=== PATIENT | male | born 1945 | race Caucasian/White ===

== ENCOUNTER 2022-02-15 04:27 | Inpatient (IN) | payer BC, MEDICARE ==
[2022-02-15] MEDS ORDERED: Ondansetron PF 4 MG/2 ML Vial ONE (04:56)
[2022-02-15 04:57] LABS: Actual Bicarbonate (HCO3a) 18.4 mEq/L (22-28); Analyzer IN Cardio ER; Base Excess (BEa) -5.9 mEq/L (-2.0 to +3.0); CO2 Tension 33.6 mmHg (35.0-45.0); Calcium, Ionized (arterial) 1.07 mmol/L (1.12-1.30); Carboxyhemoglobin (COHb) 0.5 gm% (0.0-3.0); Hemoglobin (Hb) 16.3 g/dL (14.0-18.0); O2 Tension (PaO2), arterial 100.5 mmHg (> 70.0); Potassium - ABG Lab 4.19 mmol/L (3.70-5.30); pH, Arterial 7.36 (7.35-7.45)
[2022-02-15 05:04] LABS: Hemoglobin 17.7 g/dL (14.0-18.0); Mean Corpuscular HGB CONC 32.1 g/dL (32.0-36.0); Mean Corpuscular Hemoglobin 29.4 pg (27.0-31.0); Mean Corpuscular Volume 91.3 fL (78.0-98.0); Platelet Count 169 thou/uL (130-400); RBC Distribution Width 14.1 % (11.5-14.5); Red Blood Cell (RBC) Count 6.04 mill/uL (4.70-6.10)
[2022-02-15 05:13] LABS: ALT (SGPT) 24 U/L (8-55); AST (SGOT) 8 U/L (5-34); Albumin 3.9 g/dL (3.4-4.8); Alkaline Phosphatase 69 U/L (40-110); Anion Gap 17 mmol/L (10-20); BUN (Urea Nitrogen) 21 mg/dL (8.4-25.7); Bilirubin, Total 1.1 mg/dL (0.2-1.2); Calc. Creatinine Clearance 0 mL/min (70-130); Calcium 8.4 mg/dL (7.8-10.44); Carbon Dioxide 23 mmol/L (23-31); Chloride 103 mmol/L (98-107); Globulin 3.4 g/dL (2.4-3.5); Glucose 193 mg/dL (83-110); Lipase 12 U/L (8-78); Potassium 4.6 mmol/L (3.5-5.1); Protein, Total 7.3 g/dL (5.8-8.1); Sodium 138 mmol/L (136-145)
[2022-02-15 05:16] LABS: Puncture Site LRA
[2022-02-15 05:18] LABS: PTT 25.6 sec (22.9-36.1); Prothrombin Time 13.3 sec (12.0-14.7)
[2022-02-15 05:19] LABS: D-Dimer Test 1.11 *mcg/mL (0.27-0.43)
[2022-02-15 05:29] LABS: Band 6 % (5-11); Eosinophils 2 % (0-10); Lymphocytes 10 % (21-51); MDiff Complete? YES; Monocytes 28 % (0-10); Neutrophil 54 % (42-75); Platelet Morphology Comment Appears Adequate; RBC Morphology Normal; Reflex for Review?? YES; White Blood Cell (WBC) Count 1.8 thou/uL (4.8-10.8)
[2022-02-15] MEDS ORDERED: Vancomycin 1 GM/200 ML BAG ONE (05:35)
[2022-02-15] MEDS ORDERED: Cefepime 2 GM VIAL ONE (05:35)
[2022-02-15] MEDS ORDERED: Norepinephrine 8 MG/0.9% NS 250 ML ONE (06:03)
[2022-02-15] MEDS ORDERED: Ondansetron ODT 4 MG TAB SL PRN (06:15)
[2022-02-15] MEDS ORDERED: Ondansetron PF 4 MG/2 ML Vial IVP PRN (06:15)
[2022-02-15] MEDS ORDERED: Sodium Chloride 0.9% 1,000 ML IV SCH (06:15)
[2022-02-15] MEDS ORDERED: Acetaminophen 325 MG TAB PO PRN (06:41)
[2022-02-15 07:59] LABS: Lactic Acid 1.8 mmol/L (0.5-2.2)
[2022-02-15 09:26] VITALS: BMI 44.9
[2022-02-15] MEDS ORDERED: Piperacillin/Tazobactam 3.375 GM in Sodium Chloride 0.9% 100 ML IVPB SCH (10:00)
[2022-02-15] MEDS: Famotidine 20 MG TAB PO SCH ×2 (10:24→21:29)
[2022-02-15] MEDS: Apixaban 5 MG TAB PO SCH ×2 (10:24→21:29)
[2022-02-15] MEDS: Vancomycin 1 GM in Premix Bag 1 BAG IVPB SCH ×2 (10:50→11:07)
[2022-02-15 10:56] LABS: SARS-CoV-2 NAA Rapid Test Not Detected (NotDetected)
[2022-02-15] MEDS ORDERED: Lactated Ringer's 1,000 ML IV SCH (11:00)
[2022-02-15] MEDS: Lactated Ringer's 1,000 ML IV SCH (11:09)
[2022-02-15] MEDS ORDERED: Cefepime 2 GM in Sodium Chloride 0.9% 100 ML IVPB SCH (14:00)
[2022-02-15] MEDS: Piperacillin/Tazobactam 3.375 GM in Sodium Chloride 0.9% 100 ML IVPB SCH ×2 (14:21→21:30)
[2022-02-15] MEDS ORDERED: Norepinephrine 8 MG/0.9% NS 250 ML IVPB SCH (15:30)
[2022-02-15] MEDS: ALPRAZolam 1 MG TAB PO SCH (21:29)
[2022-02-16 04:51] LABS: Band 34 % (5-11); Eosinophils 5 % (0-10); Lymphocytes 16 % (21-51); MDiff Complete? YES; Mean Corpuscular HGB CONC 31.6 g/dL (32.0-36.0); Mean Corpuscular Hemoglobin 29.3 pg (27.0-31.0); Mean Corpuscular Volume 92.5 fL (78.0-98.0); Mean Platelet Volume 7.9 fL (7.4-10.4); Metamyelocyte 1 % (0-0); Monocytes 15 % (0-10); Neutrophil 20 % (42-75); Platelet Count 129 thou/uL (130-400); Platelet Morphology Comment Appears Decreased; RBC Distribution Width 14.1 % (11.5-14.5); RBC Morphology Normal; Reactive Lymphocytes 8 % (0-10); Red Blood Cell (RBC) Count 4.77 mill/uL (4.70-6.10); White Blood Cell (WBC) Count 2.1 thou/uL (4.8-10.8)
[2022-02-16 04:53] LABS: Anion Gap 9 mmol/L (10-20); BUN (Urea Nitrogen) 18 mg/dL (8.4-25.7); Calc. Creatinine Clearance 130 mL/min (70-130); Calcium 7.2 mg/dL (7.8-10.44); Carbon Dioxide 24 mmol/L (23-31); Chloride 110 mmol/L (98-107); Glucose 97 mg/dL (83-110); Sodium 139 mmol/L (136-145)
[2022-02-16] MEDS: Piperacillin/Tazobactam 3.375 GM in Sodium Chloride 0.9% 100 ML IVPB SCH ×3 (05:06→21:15)
[2022-02-16] MEDS: Lactated Ringer's 1,000 ML IV SCH (05:06)
[2022-02-16 07:49] LABS: Bacteria/HPF None Seen HPF (None Seen); Bilirubin Negative (Negative); Blood, Urine 3+ (Negative); Clarity Clear (Clear); Glucose, Urine (Dipstick) Normal (Negative); Ketone, Urine Negative (Negative); Leukocyte Negative Leu/uL (Negative); Nitrite Negative (Negative); Protein, Urine (Dipstick) 10 mg/dL (Neg-Trace); RBC/HPF Greater than 50 HPF (0-3); Specific Gravity, Urine 1.021 (1.002-1.036); Squamous Epithelial None Seen HPF (0-3); WBC/HPF 0-3 HPF (0-3)
[2022-02-16 07:51] LABS: Urine Culture Reflex No No
[2022-02-16] MEDS: Famotidine 20 MG TAB PO SCH ×2 (08:10→21:12)
[2022-02-16] MEDS: Apixaban 5 MG TAB PO SCH ×2 (08:10→21:12)
[2022-02-16] MEDS ORDERED: Vancomycin 1.5 GRAM/300 ML BAG 1.5 GM in Premix Bag 1 BAG IVPB SCH (10:00)
[2022-02-16] MEDS ORDERED: Albuterol Sulfate 1.25 MG/3 ML NEB NEB PRN (11:27)
[2022-02-16] MEDS ORDERED: Artificial Tear Sol 15 ML BOT EA EYE PRN (11:28)
[2022-02-16] MEDS: Vancomycin 1 GM in Premix Bag 1 BAG IVPB SCH ×2 (11:59→23:59)
[2022-02-16] MEDS: metroNIDAZOLE 500 MG TAB PO SCH ×2 (14:26→21:15)
[2022-02-16] MEDS: Mometasone 100 MCG/Formoterol 5 MCG 120 PUFF INHALER INH SCH (19:09)
[2022-02-16] MEDS ORDERED: THALIDOMIDE PO SCH (21:00)
[2022-02-16] MEDS: ALPRAZolam 1 MG TAB PO SCH (21:12)
[2022-02-17] MEDS: Piperacillin/Tazobactam 3.375 GM in Sodium Chloride 0.9% 100 ML IVPB SCH ×3 (05:11→21:30)
[2022-02-17] MEDS: metroNIDAZOLE 500 MG TAB PO SCH ×3 (05:11→21:30)
[2022-02-17 06:22] LABS: Anion Gap 11 mmol/L (10-20); BUN (Urea Nitrogen) 10 mg/dL (8.4-25.7); Calc. Creatinine Clearance 142 mL/min (70-130); Calcium 7.5 mg/dL (7.8-10.44); Carbon Dioxide 22 mmol/L (23-31); Chloride 109 mmol/L (98-107); Glucose 96 mg/dL (83-110); Potassium 3.9 mmol/L (3.5-5.1); Sodium 138 mmol/L (136-145)
[2022-02-17 06:34] LABS: Band 8 % (5-11); Eosinophils 2 % (0-10); Hemoglobin 14.5 g/dL (14.0-18.0); Lymphocytes 16 % (21-51); MDiff Complete? YES; Mean Corpuscular HGB CONC 31.7 g/dL (32.0-36.0); Mean Corpuscular Hemoglobin 29.3 pg (27.0-31.0); Mean Corpuscular Volume 92.6 fL (78.0-98.0); Mean Platelet Volume 7.8 fL (7.4-10.4); Monocytes 14 % (0-10); Neutrophil 60 % (42-75); Platelet Count 136 thou/uL (130-400); Platelet Morphology Comment Appears Adequate; RBC Distribution Width 14.1 % (11.5-14.5); RBC Morphology Normal; Red Blood Cell (RBC) Count 4.95 mill/uL (4.70-6.10); White Blood Cell (WBC) Count 2.9 thou/uL (4.8-10.8)
[2022-02-17] MEDS: Mometasone 100 MCG/Formoterol 5 MCG 120 PUFF INHALER INH SCH ×2 (07:05→21:32)
[2022-02-17] MEDS: Famotidine 20 MG TAB PO SCH ×2 (07:45→19:38)
[2022-02-17] MEDS: Flecainide 50 MG TAB PO SCH (07:46)
[2022-02-17] MEDS: Apixaban 5 MG TAB PO SCH ×2 (07:46→19:38)
[2022-02-17] MEDS: Floranex 1 GM Packet PO SCH (07:46)
[2022-02-17 07:58] LABS: Reactive Lymphocytes 2 % (0-10)
[2022-02-17] MEDS ORDERED: Saccharomyces boulardii 250 MG CAP PO SCH (09:00)
[2022-02-17 13:29] LABS: Vancomycin, Trough 7.9 ug/mL
[2022-02-17] MEDS: Vancomycin 1 GM in Premix Bag 1 BAG IVPB SCH (14:15)
[2022-02-17] MEDS: Vancomycin 1.5 GRAM/300 ML BAG 1.5 GM in Premix Bag 1 BAG IVPB SCH (14:20)
[2022-02-17] MEDS: ALPRAZolam 1 MG TAB PO SCH (19:38)
[2022-02-18] MEDS: Vancomycin 1.5 GRAM/300 ML BAG 1.5 GM in Premix Bag 1 BAG IVPB SCH (03:03)
[2022-02-18] MEDS: Piperacillin/Tazobactam 3.375 GM in Sodium Chloride 0.9% 100 ML IVPB SCH (05:11)
[2022-02-18] MEDS: metroNIDAZOLE 500 MG TAB PO SCH (05:11)
[2022-02-18 06:37] LABS: #Eosinphils 0.1 thou/uL (0.0-0.7); #Lymphocytes 0.7 thou/uL (1.20-3.40); #Monocytes 0.4 thou/uL (0.11-0.59); #Neutrophils 1.6 thou/uL (1.40-6.50); %Eosinophils 3.5 % (0.0-10.0); %Lymphocytes 23.8 % (21.0-51.0); %Monocytes 13.4 % (0.0-10.0); %Neutrophils 59.2 % (42.0-75.0); Hemoglobin 14.9 g/dL (14.0-18.0); Mean Corpuscular HGB CONC 32.4 g/dL (32.0-36.0); Mean Corpuscular Hemoglobin 29.3 pg (27.0-31.0); Mean Corpuscular Volume 90.5 fL (78.0-98.0); Mean Platelet Volume 7.7 fL (7.4-10.4); Platelet Count 143 thou/uL (130-400); RBC Distribution Width 13.9 % (11.5-14.5); Red Blood Cell (RBC) Count 5.07 mill/uL (4.70-6.10); White Blood Cell (WBC) Count 2.8 thou/uL (4.8-10.8)
[2022-02-18 06:43] LABS: Anion Gap 11 mmol/L (10-20); BUN (Urea Nitrogen) 10 mg/dL (8.4-25.7); Calc. Creatinine Clearance 156 mL/min (70-130); Calcium 8.1 mg/dL (7.8-10.44); Carbon Dioxide 24 mmol/L (23-31); Chloride 107 mmol/L (98-107); Glucose 95 mg/dL (83-110); Potassium 3.5 mmol/L (3.5-5.1); Sodium 138 mmol/L (136-145)
[2022-02-18] MEDS: Mometasone 100 MCG/Formoterol 5 MCG 120 PUFF INHALER INH SCH (06:50)
[2022-02-18 08:40] VITALS: BP 135/77; TEMP 98.4
[2022-02-18] MEDS: Apixaban 5 MG TAB PO SCH (08:44)
[2022-02-18] MEDS: Famotidine 20 MG TAB PO SCH (08:45)
[2022-02-18] MEDS: Flecainide 50 MG TAB PO SCH (08:45)
[2022-02-18] MEDS: Floranex 1 GM Packet PO SCH (08:45)
== END 2022-02-18 12:05 | disposition home or self-care (01) | DRG 871 ==
LOC: ERS 04:27 → CCU 06:09 → T4-B 02-16 10:46
PROVIDERS: ADMIT Internal Medicine; ATTEND Family Medicine
PROC: 06HY33Z Insertion of Infusion Device into Lower Vein, Percutaneous Approach (ICD-10-PCS; principal; 2022-02-15)
PROC: 3E033XZ Introduction of Vasopressor into Peripheral Vein, Percutaneous Approach (ICD-10-PCS; 2022-02-15)
PROC: 3E03329 Introduction of Other Anti-infective into Peripheral Vein, Percutaneous Approach (ICD-10-PCS; 2022-02-15)
DX: A41.2 Sepsis due to unspecified staphylococcus (principal); J96.01 Acute respiratory failure with hypoxia; R65.21 Severe sepsis with septic shock; R57.1 Hypovolemic shock; C90.00 Multiple myeloma not having achieved remission; E87.2 Acidosis; N17.9 Acute kidney failure, unspecified; I48.20 Chronic atrial fibrillation, unspecified; Z68.42 Body mass index [BMI] 45.0-49.9, adult; J44.9 Chronic obstructive pulmonary disease, unspecified; I48.91 Unspecified atrial fibrillation; Z96.649 Presence of unspecified artificial hip joint; E78.5 Hyperlipidemia, unspecified; Z96.659 Presence of unspecified artificial knee joint; I10 Essential (primary) hypertension; G47.33 Obstructive sleep apnea (adult) (pediatric); Z96.643 Presence of artificial hip joint, bilateral; K52.9 Noninfective gastroenteritis and colitis, unspecified; E66.01 Morbid (severe) obesity due to excess calories; Z20.822 Contact with and (suspected) exposure to COVID-19; Z79.899 Other long term (current) drug therapy; Z79.51 Long term (current) use of inhaled steroids; Z79.82 Long term (current) use of aspirin; Z90.49 Acquired absence of other specified parts of digestive tract; Z98.890 Other specified postprocedural states; Z79.01 Long term (current) use of anticoagulants; Z87.891 Personal history of nicotine dependence
CPT/HCPCS: 36415; 36600; 71045; 80048; 80053; 80202; 81001; 82805; 83605; 83690; 83880; 84484; 85025; 85060; 85379; 85610; 85730; 87040; 87077; 87149; 93005; 94660; J0692; J2405; J2543; J3370; J3490; J7050; J7120

== ENCOUNTER 2022-08-01 08:52 | Outpatient (CLI) | payer BC, MEDICARE | END 2022-08-01 08:53 | disposition home or self-care (01) | LOC: RAD 08:52 | PROVIDERS: ATTEND Internal Medicine Critical Care Medicine | DX: R06.00 Dyspnea, unspecified (principal) | CPT/HCPCS: 71046 ==

== ENCOUNTER 2023-02-02 12:51 | Outpatient (CLI) | payer MEDICARE ==
[2023-02-02 14:10] LABS: Bilirubin Neg (Negative); Blood, Urine Negative (Negative); Clarity Clear (Clear); Glucose, Urine (Dipstick) Normal (Negative); Ketone, Urine Negative (Negative); Leukocyte Negative (Negative); Nitrite Negative (Negative); Protein, Urine (Dipstick) Negative (Neg-Trace); Specific Gravity, Urine 1.015 (1.005-1.030); Urobilinogen Normal mg/dL (Less than 2)
[2023-02-02 14:15] LABS: Hemoglobin 14.8 g/dL (13.5-17.5); Mean Corpuscular Hemoglobin 28.3 pg (27.0-33.0); Mean Corpuscular Volume 88.5 fl (81.2-95.1); Mean Platelet Volume 10.5 fl (7.4-10.4); Platelet Count 214 10x3/uL (150-450); RBC Distribution Width 15.1 % (11.5-14.5); Red Blood Cell (RBC) Count 5.23 10x6/uL (4.32-5.72)
[2023-02-02 14:20] LABS: Bacteria/HPF 3+ HPF (None Seen); Mucous/LPF 1+ LPF (<2+); RBC/HPF 0-3 HPF (0-3); Squamous Epithelial 0-3 HPF (0-3); WBC/HPF 0-3 HPF (0-3)
[2023-02-02 14:34] LABS: PTT 28.4 sec (22.0-33.0); Prothrombin Time 10.9 sec (9.5-12.1)
[2023-02-02 15:16] LABS: Anion Gap 16 mmol/L (10-20); BUN (Urea Nitrogen) 18 mg/dL (8.4-25.7); Calc. Creatinine Clearance 0 mL/min (70-130); Calcium 8.4 mg/dL (7.8-10.44); Carbon Dioxide 23 mmol/L (23-31); Chloride 107 mmol/L (98-107); Estimated GFR 92; Glucose 94 mg/dL (83-110); Potassium 4.1 mmol/L (3.5-5.1); Sodium 142 mmol/L (136-145)
== END 2023-02-02 12:52 | disposition home or self-care (01) ==
LOC: LABBT 12:51
PROVIDERS: ATTEND Urology
DX: Z01.818 Encounter for other preprocedural examination (principal); Z12.5 Encounter for screening for malignant neoplasm of prostate; C90.00 Multiple myeloma not having achieved remission; N40.1 Benign prostatic hyperplasia with lower urinary tract symptoms; J44.9 Chronic obstructive pulmonary disease, unspecified; M96.1 Postlaminectomy syndrome, not elsewhere classified; M47.812 Spondylosis without myelopathy or radiculopathy, cervical region; I10 Essential (primary) hypertension; I48.91 Unspecified atrial fibrillation; R35.0 Frequency of micturition; N48.83 Acquired buried penis; Z79.01 Long term (current) use of anticoagulants; Z90.79 Acquired absence of other genital organ(s)
CPT/HCPCS: 80048; 81001; 85027; 85610; 85730; 87086; 93005; 93010

== ENCOUNTER 2023-02-13 08:18 | Outpatient (CLI) | payer BC, MEDICARE | END 2023-02-13 08:19 | disposition home or self-care (01) | LOC: RAD 08:18 | PROVIDERS: ATTEND Internal Medicine Critical Care Medicine | DX: R06.00 Dyspnea, unspecified (principal); J98.4 Other disorders of lung | CPT/HCPCS: 71046 ==

== ENCOUNTER 2023-02-15 09:06 | Day surgery (SDC) | payer BC, MEDICARE ==
[2023-02-02 13:37] VITALS: BMI 42.5
[2023-02-15] MEDS ORDERED: Levofloxacin 500 mg/D5W 100 ml Premix Bag ONE (09:15)
[2023-02-15] MEDS ORDERED: fentaNYL 50 mcg/mL 1 mL Vial ONE (09:28)
[2023-02-15] MEDS ORDERED: Famotidine/PF 20 mg/2ml Vial ONE (09:29)
[2023-02-15] MEDS ORDERED: Propofol 500 MG/50 ML VIAL ONE (09:29)
[2023-02-15] MEDS ORDERED: PROPOFOL 200 MG/20 ML VIAL ONE (09:48)
[2023-02-15] MEDS ORDERED: Ondansetron PF 4 MG/2 ML Vial ONE (09:48)
[2023-02-15] MEDS ORDERED: Lidocaine 1% PF 5 ML VIAL ONE (09:48)
[2023-02-15] MEDS ORDERED: Succinylcholine Chloride 100 MG/5 ML SYRINGE FS ONE (09:48)
[2023-02-15] MEDS ORDERED: Phenazopyridine HCl 100 MG TAB ONE (11:20)
[2023-02-15] MEDS ORDERED: Oxybutynin 5 MG TAB ONE (11:21)
== END 2023-02-15 13:18 | disposition home or self-care (01) ==
LOC: SDC 09:06
PROVIDERS: ATTEND Urology
PROC: 0T7D8DZ Dilation of Urethra with Intraluminal Device, Via Natural or Artificial Opening Endoscopic (ICD-10-PCS; principal; 2023-02-15)
DX: N40.1 Benign prostatic hyperplasia with lower urinary tract symptoms (principal); N13.8 Other obstructive and reflux uropathy; N35.912 Unspecified bulbous urethral stricture, male; J44.9 Chronic obstructive pulmonary disease, unspecified; I10 Essential (primary) hypertension; I48.91 Unspecified atrial fibrillation; M19.90 Unspecified osteoarthritis, unspecified site; I25.10 Atherosclerotic heart disease of native coronary artery without angina pectoris; G47.33 Obstructive sleep apnea (adult) (pediatric); E66.01 Morbid (severe) obesity due to excess calories; Z68.41 Body mass index [BMI] 40.0-44.9, adult; Z85.79 Personal history of other malignant neoplasms of lymphoid, hematopoietic and related tissues; Z87.891 Personal history of nicotine dependence; Z79.01 Long term (current) use of anticoagulants; Z79.1 Long term (current) use of non-steroidal anti-inflammatories (NSAID); Z79.82 Long term (current) use of aspirin; Z79.899 Other long term (current) drug therapy
CPT/HCPCS: J1956; J2405; J2704; J3010; L8699; S0028

== ENCOUNTER 2023-07-30 17:12 | Observation (INO) | payer BC, MEDICARE ==
[2023-07-30 17:31] LABS: #Basophils 0.1 thou/uL (0.0-0.2); #Eosinphils 0.2 thou/uL (0.0-0.7); #Monocytes 0.7 thou/uL (0.11-0.59); #Neutrophils 2.3 thou/uL (1.40-6.50); %Basophils 2.2 % (0.0-1.0); %Monocytes 14.5 % (0.0-10.0); %Neutrophils 50.6 % (42.0-75.0); Hematocrit 44.3 % (42.0-52.0); Hemoglobin 14.2 g/dL (14.0-18.0); Mean Corpuscular HGB CONC 32.1 g/dL (32.0-36.0); Mean Corpuscular Hemoglobin 27.6 pg (27.0-31.0); Mean Corpuscular Volume 86.2 fl (78.0-98.0); Platelet Count 229 10x3/uL (130-400); RBC Distribution Width 15.2 % (11.5-14.5); Red Blood Cell (RBC) Count 5.14 mill/uL (4.70-6.10); White Blood Cell (WBC) Count 4.5 10x3/uL (4.8-10.8)
[2023-07-30 17:44] LABS: PTT 29.9 sec (22.9-36.1)
[2023-07-30 17:55] LABS: ALT (SGPT) 17 U/L (8-55); AST (SGOT) 7 U/L (5-34); Alkaline Phosphatase 72 U/L (40-110); Anion Gap 13 mmol/L (10-20); BUN (Urea Nitrogen) 18 mg/dL (8.4-25.7); Bilirubin, Total 0.4 mg/dL (0.2-1.2); CK (CPK) 31 U/L (30-200); Calc. Creatinine Clearance 0 mL/min (70-130); Calcium 9.3 mg/dL (7.8-10.44); Carbon Dioxide 25 mmol/L (23-31); Chloride 105 mmol/L (98-107); Estimated GFR 87; Globulin 3.1 g/dL (2.4-3.5); Glucose 92 mg/dL (83-110); Potassium 4.3 mmol/L (3.5-5.1); Protein, Total 7.1 g/dL (5.8-8.1); Sodium 139 mmol/L (136-145)
[2023-07-30 17:58] LABS: Troponin I Less than 0.010 ng/mL (< 0.028)
[2023-07-30] MEDS ORDERED: Acetaminophen 325 MG TAB PO PRN (18:26)
[2023-07-30] MEDS ORDERED: Ondansetron ODT 4 MG TAB PO PRN (18:26)
[2023-07-30] MEDS ORDERED: hydrALAZINE 20 MG/ML VIAL SLOW IVP PRN (18:26)
[2023-07-30] MEDS ORDERED: HYDROcodone/Acetaminophen 5/325 mg Tablet PO PRN ×2 (18:26)
[2023-07-30] MEDS ORDERED: Aspirin 325 MG TAB ONE (18:28)
[2023-07-30 19:43] LABS: Hemoglobin A1c 5.1 % (4.0-6.0)
[2023-07-30 20:15] VITALS: TEMP 98.2
[2023-07-30 20:19] VITALS: BMI 44.9
[2023-07-30] MEDS ORDERED: Apixaban 5 MG TAB PO SCH (21:00)
[2023-07-30] MEDS ORDERED: ALPRAZolam 1 MG TAB PO SCH (21:00)
[2023-07-30] MEDS ORDERED: Famotidine 20 MG TAB PO SCH (21:00)
[2023-07-30] MEDS ORDERED: Atorvastatin Calcium 40 MG TAB PO SCH (21:00)
[2023-07-30] MEDS ORDERED: Atorvastatin Calcium 40 MG TAB ONE (21:21)
[2023-07-30] MEDS ORDERED: Famotidine 20 MG TAB ONE (21:22)
[2023-07-30 22:53] VITALS: BP 165/83
[2023-07-31] MEDS ORDERED: Aspirin 81 mg Enteric Coated Tablet PO SCH (09:00)
== END 2023-07-30 23:16 | disposition left against medical advice (07) ==
LOC: ERS 17:12 → ERHOLD 18:03
PROVIDERS: ADMIT Hospitalist; ATTEND Hospitalist
DX: I48.91 Unspecified atrial fibrillation (principal); I10 Essential (primary) hypertension; E87.5 Hyperkalemia; C90.00 Multiple myeloma not having achieved remission; J44.9 Chronic obstructive pulmonary disease, unspecified; G47.30 Sleep apnea, unspecified; I82.409 Acute embolism and thrombosis of unspecified deep veins of unspecified lower extremity; R41.82 Altered mental status, unspecified; J32.0 Chronic maxillary sinusitis; Z86.73 Personal history of transient ischemic attack (TIA), and cerebral infarction without residual deficits; Z79.899 Other long term (current) drug therapy
CPT/HCPCS: 36415; 70450; 80053; 82550; 83036; 83880; 84443; 84484; 85025; 85610; 85730; 93005; G0378

== ENCOUNTER 2024-10-11 03:12 | Observation (INO) | payer BC, MEDICARE ==
[2024-10-11 03:41] LABS: #Basophils 0.03 10x3/uL (0.0-0.2); #Eosinophils Less than 0.03 10x3/uL (0.0-0.7); %Basophils 0.9 % (0.0-1.0); %Eosinophils 0.3 % (0.0-10.0); %Lymphocytes 11.5 % (21.0-51.0); %Monocytes 12.4 % (0.0-10.0); %Neutrophils 74.6 % (42.0-75.0); Hematocrit 37.2 % (42.0-52.0); Hemoglobin 11.8 g/dL (14.0-18.0); Mean Corpuscular HGB CONC 31.7 g/dL (32.0-36.0); Mean Corpuscular Hemoglobin 27.5 pg (27.0-31.0); Mean Corpuscular Volume 86.7 fL (78.0-98.0); Mean Platelet Volume 9.9 fL (7.4-10.4); Platelet Count 157 10x3/uL (130-400); RBC Distribution Width 17.5 % (11.5-14.5); Red Blood Cell (RBC) Count 4.29 mill/uL (4.70-6.10)
[2024-10-11] MEDS ORDERED: Dexamethasone 10 MG/ML VIAL ONE (03:45)
[2024-10-11] MEDS ORDERED: Azithromycin 500 MG VIAL ONE (03:45)
[2024-10-11] MEDS ORDERED: cefTRIAXone (ROCEPHIN) 1 GM VIAL ONE ×2 (03:46→04:18)
[2024-10-11] MEDS ORDERED: Sodium Chloride 0.9% 200 ML ONE (03:46)
[2024-10-11] MEDS ORDERED: Albuterol 2.5 MG (0.5 mL) NEB ONE (03:46)
[2024-10-11] MEDS ORDERED: Albuterol 2.5 MG (3 mL) NEB ONE (03:47)
[2024-10-11 03:57] LABS: INR-International Normal Ratio 1.1; Prothrombin Time 14.4 sec (12.0-14.7)
[2024-10-11 03:58] LABS: ALT (SGPT) 29 U/L (8-55); AST (SGOT) 15 U/L (5-34); Albumin 3.4 g/dL (3.4-4.8); Alkaline Phosphatase 66 U/L (40-110); Anion Gap 10 mmol/L (10-20); BUN (Urea Nitrogen) 16 mg/dL (8.4-25.7); Bilirubin, Total 0.6 mg/dL (0.2-1.2); Calc. Creatinine Clearance 0 mL/min (70-130); Calcium 8.4 mg/dL (7.8-10.44); Carbon Dioxide 23 mmol/L (23-31); Chloride 105 mmol/L (98-107); Estimated GFR 50; Globulin 3.8 g/dL (2.4-3.5); Glucose 111 mg/dL (83-110); PTT 31.7 sec (22.9-36.1); Potassium 4.4 mmol/L (3.5-5.1); Protein, Total 7.2 g/dL (5.8-8.1); Sodium 134 mmol/L (136-145)
[2024-10-11 04:02] LABS: Troponin I 0.023 ng/mL (< 0.028)
[2024-10-11 05:08] LABS: Actual Bicarbonate (HCO3v) 22.3 mEq/L (22-28); Base Excess -3.6 mEq/L (-2.0 to +3.0); Calcium, Ionized (venous) 0.94 mmol/L (1.16-1.32); Chloride (VBG) 105 mmol/L (98-106); Hematocrit-VBG 34 % (42.0-52.0); Hemoglobin (Hb) 11.4 g/dL (12.6-17.4); Potassium (VBG) 3.75 mmol/L (3.70-5.30); Sodium 140 mmol/L (133-146); pH (venous) 7.324 (7.32-7.43)
[2024-10-11] MEDS ORDERED: Oseltamivir 75 MG CAP ONE (06:07)
[2024-10-11] MEDS ORDERED: Sodium Chloride 0.9% 1,000 ML IV SCH (06:45)
[2024-10-11] MEDS ORDERED: Ondansetron PF 4 MG/2 ML Vial IVP PRN (06:45)
[2024-10-11] MEDS ORDERED: Acetaminophen 325 MG TAB PO PRN ×2 (06:45→09:05)
[2024-10-11] MEDS ORDERED: Ondansetron ODT 4 MG TAB SL PRN (06:45)
[2024-10-11] MEDS ORDERED: Acetaminophen 650 MG Suppository PR PRN (09:05)
[2024-10-11] MEDS ORDERED: Senokot S 8.6-50 MG TAB PO PRN (09:05)
[2024-10-11] MEDS ORDERED: Calcium Carbonate 500 MG ChewTAB PO PRN (09:05)
[2024-10-11] MEDS ORDERED: Benzonatate 100 MG CAP PO PRN (09:08)
[2024-10-11] MEDS ORDERED: Aspirin Chewable 81 MG TAB PO SCH (09:15)
[2024-10-11] MEDS ORDERED: FLU (Fluad Triv) TS24-25 (65UP)/MF59C/PF 45 MCG/0.5 ML Syringe IM ONE (10:00)
[2024-10-11] MEDS: Sodium Chloride 0.9% 1,000 ML IV SCH (10:35)
[2024-10-11 11:28] VITALS: BMI 47.1
[2024-10-11] MEDS ORDERED: Iopamidol-370 76% 500 ML MDV (1 ML CHARGE) ONE (14:42)
[2024-10-11] MEDS: Famotidine 20 MG TAB PO SCH (20:15)
[2024-10-11] MEDS: Apixaban 5 MG TAB PO SCH (20:16)
[2024-10-11] MEDS: Flecainide 50 MG TAB PO SCH (20:16)
[2024-10-11] MEDS: Oseltamivir 75 MG CAP PO SCH (20:16)
[2024-10-11] MEDS: Amitriptyline HCl 25 MG TAB PO SCH (20:17)
[2024-10-11] MEDS: methylPREDNISolone Sod Succ 40 MG VIAL IVP SCH (20:17)
[2024-10-12 04:43] LABS: #Basophils Less than 0.03 10x3/uL (0.0-0.2); #Eosinophils Less than 0.03 10x3/uL (0.0-0.7); %Basophils 0.3 % (0.0-1.0); %Lymphocytes 11.1 % (21.0-51.0); %Monocytes 10.1 % (0.0-10.0); %Neutrophils 77.8 % (42.0-75.0); Hematocrit 35.4 % (42.0-52.0); Hemoglobin 11.3 g/dL (14.0-18.0); Mean Corpuscular HGB CONC 31.9 g/dL (32.0-36.0); Mean Corpuscular Hemoglobin 27.6 pg (27.0-31.0); Mean Corpuscular Volume 86.6 fL (78.0-98.0); Mean Platelet Volume 10.5 fL (7.4-10.4); Platelet Count 159 10x3/uL (130-400); RBC Distribution Width 17.5 % (11.5-14.5); Red Blood Cell (RBC) Count 4.09 mill/uL (4.70-6.10)
[2024-10-12] MEDS: Azithromycin 500 MG in Sodium Chloride 0.9% 250 ML 250 ML IVPB SCH (05:19)
[2024-10-12 05:32] LABS: Anion Gap 9 mmol/L (10-20); BUN (Urea Nitrogen) 19 mg/dL (8.4-25.7); Calc. Creatinine Clearance 109 mL/min (70-130); Calcium 8.4 mg/dL (7.8-10.44); Carbon Dioxide 24 mmol/L (23-31); Chloride 108 mmol/L (98-107); Estimated GFR 67; Glucose 150 mg/dL (83-110); Potassium 4.9 mmol/L (3.5-5.1); Sodium 136 mmol/L (136-145)
[2024-10-12] MEDS: cefTRIAXone\\ROCEPHIN 1 GM in Sodium Chloride 0.9% 100 ML IVPB SCH (07:20)
[2024-10-12] MEDS ORDERED: Non-Formulary Item 1 EACH (Fluticasone Propionate [Flovent Diskus] 50 MCG Blst.W.Dev) INH PRN (08:07)
[2024-10-12 09:16] VITALS: TEMP 97.6
[2024-10-12] MEDS: Loratadine 10 MG TAB PO SCH (09:16)
[2024-10-12] MEDS: Aspirin Chewable 81 MG TAB PO SCH (09:16)
[2024-10-12 15:56] VITALS: BP 147/69
[2024-10-12] MEDS ORDERED: ALPRAZolam 1 MG TAB PO SCH (21:00)
[2024-10-12] MEDS ORDERED: Amlodipine 10 MG TAB PO SCH (21:00)
[2024-10-12] MEDS ORDERED: Rosuvastatin 20 MG TAB PO SCH (21:00)
[2024-10-13] MEDS ORDERED: FLU (Fluad Triv) TS24-25 (65UP)/MF59C/PF 45 MCG/0.5 ML Syringe IM ONE (09:00)
== END 2024-10-12 16:03 | disposition home or self-care (01) ==
LOC: ERS 03:12 → T4-B 09:20
PROVIDERS: ADMIT Student in an Organized Health Care Education/Training Program; ATTEND Internal Medicine
DX: J96.01 Acute respiratory failure with hypoxia (principal); J44.1 Chronic obstructive pulmonary disease with (acute) exacerbation; J10.00 Influenza due to other identified influenza virus with unspecified type of pneumonia; I10 Essential (primary) hypertension; I25.10 Atherosclerotic heart disease of native coronary artery without angina pectoris; I48.0 Paroxysmal atrial fibrillation; E78.5 Hyperlipidemia, unspecified; C90.00 Multiple myeloma not having achieved remission; G47.33 Obstructive sleep apnea (adult) (pediatric); N17.9 Acute kidney failure, unspecified; N40.0 Benign prostatic hyperplasia without lower urinary tract symptoms; Z96.643 Presence of artificial hip joint, bilateral; Z87.891 Personal history of nicotine dependence; Z96.652 Presence of left artificial knee joint; Z90.49 Acquired absence of other specified parts of digestive tract; Z98.84 Bariatric surgery status; Z98.890 Other specified postprocedural states; Z79.51 Long term (current) use of inhaled steroids; Z79.01 Long term (current) use of anticoagulants; Z79.82 Long term (current) use of aspirin; Z79.1 Long term (current) use of non-steroidal anti-inflammatories (NSAID); Z79.899 Other long term (current) drug therapy
CPT/HCPCS: 36415; 71045; 71275; 80048; 80053; 82805; 83605; 83880; 84145; 84484; 85025; 85610; 85730; 87040; 87428; 93005; 94644; 94760; 96365; 96366; 96375; 96376; G0378; J0456; J0696; J1100; J2919; J7030; J7050; J7611; Q9967

== ENCOUNTER 2024-10-29 09:46 | Outpatient (CLI) | payer BC, MEDICARE ==
[2024-10-29 10:54] LABS: #Basophils 0.07 10x3/uL (0.0-0.2); %Basophils 1.5 % (0.0-1.0); %Eosinophils 3.1 % (0.0-10.0); %Lymphocytes 21.8 % (21.0-51.0); %Neutrophils 62.4 % (42.0-75.0); Hematocrit 42.1 % (42.0-52.0); Hemoglobin 13.5 g/dL (14.0-18.0); Mean Corpuscular HGB CONC 32.1 g/dL (32.0-36.0); Mean Corpuscular Hemoglobin 27.9 pg (27.0-31.0); Platelet Count 216 10x3/uL (130-400); RBC Distribution Width 17.6 % (11.5-14.5); Red Blood Cell (RBC) Count 4.84 mill/uL (4.70-6.10)
[2024-10-29 11:08] LABS: INR-International Normal Ratio 1.2; PTT 28.6 sec (22.9-36.1); Prothrombin Time 15.1 sec (12.0-14.7)
[2024-10-29 11:17] LABS: Anion Gap 14 mmol/L (10-20); BUN (Urea Nitrogen) 21 mg/dL (8.4-25.7); Calc. Creatinine Clearance 0 mL/min (70-130); Calcium 8.7 mg/dL (7.8-10.44); Carbon Dioxide 27 mmol/L (23-31); Chloride 106 mmol/L (98-107); Estimated GFR 50; Glucose 96 mg/dL (83-110); Potassium 4.5 mmol/L (3.5-5.1); Sodium 142 mmol/L (136-145)
== END 2024-10-29 09:47 | disposition home or self-care (01) ==
LOC: LABBT 09:46
PROVIDERS: ATTEND Urology
DX: Z01.818 Encounter for other preprocedural examination (principal); Z12.5 Encounter for screening for malignant neoplasm of prostate; J44.9 Chronic obstructive pulmonary disease, unspecified; I10 Essential (primary) hypertension; I48.91 Unspecified atrial fibrillation; N40.1 Benign prostatic hyperplasia with lower urinary tract symptoms; N48.83 Acquired buried penis; N39.0 Urinary tract infection, site not specified; R35.0 Frequency of micturition; Z90.79 Acquired absence of other genital organ(s); Z79.01 Long term (current) use of anticoagulants
CPT/HCPCS: 80048; 85025; 85610; 85730; 86850; 86900; 86901; 93005; 93010

== ENCOUNTER 2024-11-06 06:16 | Observation (INO) | payer BC, MEDICARE ==
[2024-10-29 10:15] VITALS: BMI 45.6
[2024-11-06] MEDS ORDERED: LevoFLOXacin D5W 500 mg (100 mL) BAG ONE (07:19)
[2024-11-06] MEDS ORDERED: Vancomycin 1 GM/200 ML (FROZEN) BAG ONE (07:20)
[2024-11-06] MEDS ORDERED: Rocuronium Bromide 10 MG/ML (10ML VIAL) ONE (07:41)
[2024-11-06] MEDS ORDERED: Lidocaine 2% PF 5 ML VIAL ONE (07:41)
[2024-11-06] MEDS ORDERED: PROPOFOL 20 ML ONE (07:41)
[2024-11-06 07:44] LABS: INR-International Normal Ratio 1.1; PTT 26.5 sec (22.9-36.1); Prothrombin Time 13.7 sec (12.0-14.7)
[2024-11-06] MEDS ORDERED: fentaNYL PF 100 MCG/2 ML SYRINGE ONE (08:24)
[2024-11-06] MEDS ORDERED: Ondansetron PF 4 MG/2 ML Vial ONE ×2 (08:49→10:23)
[2024-11-06] MEDS ORDERED: Dexamethasone 20 MG/5 ML VIAL ONE (08:49)
[2024-11-06] MEDS ORDERED: SUGAMMADEX SODIUM 200 MG/2 ML VIAL ONE (08:53)
[2024-11-06] MEDS ORDERED: PHENYLEPHRINE-NS 100 MCG/ML 10 ML SYRINGE ONE (09:33)
[2024-11-06] MEDS ORDERED: HYDROcodone/Acetaminophen 5/325 mg Tablet PO PRN ×2 (10:01)
[2024-11-06] MEDS ORDERED: hydrALAZINE 20 MG/ML VIAL SLOW IVP PRN (10:01)
[2024-11-06] MEDS ORDERED: Acetaminophen 500 MG TAB PO PRN (10:01)
[2024-11-06] MEDS ORDERED: Mag-Al 1200 mg/1200 mg/30 ML UDCUP PO PRN (10:01)
[2024-11-06] MEDS ORDERED: Docusate 100 MG CAP PO PRN (10:01)
[2024-11-06] MEDS ORDERED: diphenhydrAMINE 50 MG/ML VIAL IVP PRN (10:01)
[2024-11-06] MEDS ORDERED: Hyoscyamine SL 0.125 MG TAB SL PRN (10:01)
[2024-11-06 10:53] LABS: #Basophils 0.08 10x3/uL (0.0-0.2); %Basophils 2.6 % (0.0-1.0); %Eosinophils 4.9 % (0.0-10.0); %Lymphocytes 29.2 % (21.0-51.0); %Monocytes 12.5 % (0.0-10.0); %Neutrophils 50.5 % (42.0-75.0); Hematocrit 40.4 % (42.0-52.0); Hemoglobin 12.7 g/dL (14.0-18.0); Mean Corpuscular HGB CONC 31.4 g/dL (32.0-36.0); Mean Corpuscular Hemoglobin 27.7 pg (27.0-31.0); Platelet Count 154 10x3/uL (130-400); RBC Distribution Width 16.9 % (11.5-14.5); Red Blood Cell (RBC) Count 4.59 mill/uL (4.70-6.10)
[2024-11-06 11:17] LABS: Anion Gap 11 mmol/L (10-20); BUN (Urea Nitrogen) 18 mg/dL (8.4-25.7); Calc. Creatinine Clearance 118 mL/min (70-130); Calcium 8.3 mg/dL (7.8-10.44); Carbon Dioxide 24 mmol/L (23-31); Chloride 108 mmol/L (98-107); Estimated GFR 77; Glucose 105 mg/dL (83-110); Sodium 139 mmol/L (136-145)
[2024-11-06] MEDS: Sodium Chloride 0.9% 1,000 ML IV SCH (13:24)
[2024-11-06] MEDS: cefTRIAXone\\ROCEPHIN 1 GM in Sodium Chloride 0.9% 100 ML IVPB SCH (13:25)
[2024-11-06] MEDS ORDERED: Albuterol 2.5 MG (3 mL) NEB NEB PRN (14:02)
[2024-11-06] MEDS ORDERED: THALIDOMIDE PO SCH (21:00)
[2024-11-06] MEDS: Amlodipine 10 MG TAB PO SCH (21:30)
[2024-11-06] MEDS: Amitriptyline HCl 25 MG TAB PO SCH (21:36)
[2024-11-06] MEDS: Rosuvastatin 20 MG TAB PO SCH (21:36)
[2024-11-06] MEDS: ALPRAZolam 1 MG TAB PO SCH (21:37)
[2024-11-06] MEDS: Lisinopril 20 MG TAB PO SCH (21:49)
[2024-11-06] MEDS: Famotidine/PF 20 mg/2ml Vial SLOW IVP SCH (21:49)
[2024-11-06] MEDS: Flecainide Acetate 100 MG TAB PO SCH (21:53)
[2024-11-07 08:19] VITALS: TEMP 97.9
[2024-11-07 08:46] LABS: #Basophils Less than 0.03 10x3/uL (0.0-0.2); #Eosinophils Less than 0.03 10x3/uL (0.0-0.7); %Basophils 0.3 % (0.0-1.0); %Eosinophils 0.3 % (0.0-10.0); %Lymphocytes 18.8 % (21.0-51.0); %Monocytes 11.9 % (0.0-10.0); %Neutrophils 68.2 % (42.0-75.0); Hematocrit 39.1 % (42.0-52.0); Hemoglobin 12.5 g/dL (14.0-18.0); Mean Corpuscular Hemoglobin 28.2 pg (27.0-31.0); Mean Corpuscular Volume 88.3 fL (78.0-98.0); Mean Platelet Volume 10.3 fL (7.4-10.4); Platelet Count 175 10x3/uL (130-400); RBC Distribution Width 16.6 % (11.5-14.5); Red Blood Cell (RBC) Count 4.43 mill/uL (4.70-6.10)
[2024-11-07 09:07] LABS: Anion Gap 14 mmol/L (10-20); BUN (Urea Nitrogen) 17 mg/dL (8.4-25.7); Calc. Creatinine Clearance 107 mL/min (70-130); Calcium 8.5 mg/dL (7.8-10.44); Carbon Dioxide 22 mmol/L (23-31); Chloride 106 mmol/L (98-107); Estimated GFR 68; Glucose 138 mg/dL (83-110); Potassium 4.6 mmol/L (3.5-5.1); Sodium 137 mmol/L (136-145)
[2024-11-07] MEDS: Cholecalciferol 1,000 UNITS (25 MCG) TAB PO SCH (09:23)
[2024-11-07] MEDS: Pantoprazole 40 MG DR.TAB PO SCH (09:23)
[2024-11-07 09:24] VITALS: BP 102/57
[2024-11-07] MEDS: Cetirizine HCl 10 MG TAB PO SCH (09:24)
== END 2024-11-07 12:04 | disposition home or self-care (01) ==
LOC: SDC 06:16 → SURG B 11:24
PROVIDERS: ADMIT Urology; ATTEND Urology
PROC: 0VT08ZZ Resection of Prostate, Via Natural or Artificial Opening Endoscopic (ICD-10-PCS; principal; 2024-11-07)
DX: N40.1 Benign prostatic hyperplasia with lower urinary tract symptoms (principal); R39.14 Feeling of incomplete bladder emptying; R33.8 Other retention of urine; R35.0 Frequency of micturition; N41.0 Acute prostatitis; N34.2 Other urethritis; I10 Essential (primary) hypertension; I48.91 Unspecified atrial fibrillation; I25.10 Atherosclerotic heart disease of native coronary artery without angina pectoris; J44.9 Chronic obstructive pulmonary disease, unspecified; C90.00 Multiple myeloma not having achieved remission; M96.1 Postlaminectomy syndrome, not elsewhere classified; M47.812 Spondylosis without myelopathy or radiculopathy, cervical region; Z87.891 Personal history of nicotine dependence; Z79.51 Long term (current) use of inhaled steroids; Z79.01 Long term (current) use of anticoagulants; Z79.82 Long term (current) use of aspirin; Z79.1 Long term (current) use of non-steroidal anti-inflammatories (NSAID); Z79.899 Other long term (current) drug therapy
CPT/HCPCS: 36415; 80048; 85025; 85610; 85730; 86850; 86900; 86901; 88305; A4333; J0696; J1100; J1956; J2405; J2704; J3370; J3490; J7030